=== PATIENT | male | born 1970 | race African-American/Black ===

== ENCOUNTER 2017-06-20 15:03 | Emergency (ER) | payer OTHER ==
[~2017-06-20] VITALS: Ht 182.9 cm; Wt 85.4 kg
[~2017-06-20 15:03] MED LIST: CATAPRES-TTS 30.3 MG PO; CLONIDINE HCL0.1 MG PO; ELAVIL50 MG PO; EXCEDRIN MIGRA1 EAC2 PO; HYDRALAZINE HCL50 M1 PO; HYDROCHLOROTHIA25 MG PO; NORVASC10 MG PO; SPIRONOLACTONE50 MG PO; ZESTRIL,PRINIVI40 MG PO
[2017-06-20 15:42] LABS: BASOPHIL (%) 0.4 % (0-1); EOSINOPHIL (%) 0.5 % (0-5); HEMATOCRIT 43.3 % (38.0-50.0); HEMOGLOBIN 14.5 G/DL (12.5-16.6); IMMATURE GRANULOCYTE (%) 0.2 % (0.0-0.7); LYMPHOCYTE (%) 32.9 % (15-42); LYMPHOCYTE COUNT 1.9 K/uL (1.0-2.8); MCH 27.5 PG (29.0-34.0); MCHC 33.5 G/DL (30.0-36.0); MONOCYTE (%) 8.5 % (3-12); MONOCYTE COUNT 0.5 K/uL (0-0.8); NEUTROPHIL (%) 57.5 % (45-76); NEUTROPHIL COUNT 3.3 K/uL (1.8-6.4); PLATELET COUNT 241 K/uL (156-360); RBC DIS.WIDTH-CV 13.2 % (11.8-14.6); RBC DIS.WIDTH-SD 39.4 % (39-53); RED BLOOD COUNT 5.28 M/uL (4.00-5.50); WHITE BLOOD COUNT 5.7 K/uL (4.1-10.2)
[2017-06-20 15:58] LABS: ALBUMIN 4.2 g/dL (3.2-4.8); CHLORIDE 110 mEq/L (99-109); POTASSIUM 3.5 mEq/L (3.7-5.4); SODIUM 144 mEq/L (136-147)
[2017-06-20 16:00] LABS: GLUCOSE 104 mg/dL (70-99)
[2017-06-20 16:02] LABS: TOTAL BILIRUBIN 0.4 mg/dL (0.0-1.0)
[2017-06-20 16:04] LABS: ALKALINE PHOSPHATASE 61 IU/L (3-129); CREATININE 1.1 mg/dL (0.6-1.3); GFR ESTIMATE (CALCULATED) > 59 mL/min/ (58.99-99999)
[2017-06-20 16:05] LABS: UREA NITROGEN (BUN) 8 mg/dL (9-23)
[2017-06-20 16:06] LABS: AST (GOT) 10 IU/L (2-34); TROP-I INTERPRETATION NEGATIVE; TROPONIN-I 0.02 ng/mL (0.0-0.30)
[2017-06-20 16:07] LABS: ALT (GPT) 10 IU/L (3-49)
[2017-06-20 16:47] LABS: AMPHETAMINE NEGATIVE (500 ng/mL); BARBITURATES NEGATIVE (200 ng/mL); BENZODIAZEPINES NEGATIVE (150 ng/mL); BUPRENORPHINE NEGATIVE (10 ng/mL); COCAINE NEGATIVE (150 ng/mL); METHADONE NEGATIVE (200 ng/mL); METHAMPHETAMINE NEGATIVE (500 ng/mL); OPIATES (MORPHINE) NEGATIVE (100 ng/mL); OXYCODONE NEGATIVE (100 ng/mL); PHENCYCLIDINE NEGATIVE (25 ng/mL); PROPOXYPHENE NEGATIVE (300 ng/mL); THC CANNABINOIDS NEGATIVE (50 ng/mL); TRICYCLIC ANTIDEPRESSANTS NEGATIVE (300 ng/mL)
[2017-06-20 22:08] LABS: TROP-I INTERPRETATION NEGATIVE; TROPONIN-I 0.02 ng/mL (0.0-0.30)
[2017-06-21 00:25] VITALS: BP 170/117
== END 2017-06-21 00:31 | disposition short-term general hospital (02) ==
LOC: EME 15:03
PROVIDERS: Emergency Medicine
DX: I16.1 Hypertensive emergency (principal); R07.9 Chest pain, unspecified; R51 Headache; J45.901 Unspecified asthma with (acute) exacerbation; I45.10 Unspecified right bundle-branch block; R00.0 Tachycardia, unspecified; I10 Essential (primary) hypertension; Z86.718 Personal history of other venous thrombosis and embolism; Z79.01 Long term (current) use of anticoagulants; Z87.891 Personal history of nicotine dependence
CPT/HCPCS: 70450; 71046; 71275; 74174; 80053; 83735; 84484; 85025; 93005; 94640 76; 99281; 99285; J1100; J1200; J2060; J2765; J3010; J3475

== ENCOUNTER 2017-06-29 12:13 | Emergency (ER) | payer OTHER ==
[~2017-06-29] VITALS: Ht 177.8 cm; Wt 83.2 kg
[2017-06-29 14:10] VITALS: BP 160/119
== END 2017-06-29 14:12 ==
LOC: EME 12:13
DX: J45.909 Unspecified asthma, uncomplicated (principal); J06.9 Acute upper respiratory infection, unspecified; I10 Essential (primary) hypertension; Z87.891 Personal history of nicotine dependence; Z88.5 Allergy status to narcotic agent
CPT/HCPCS: 71045; 93005; 94640; 99281; 99284; J1100; J7644

== ENCOUNTER 2017-09-04 14:16 | Emergency (ER) | payer OTHER ==
[~2017-09-04] VITALS: Ht 177.8 cm; Wt 94.5 kg
[2017-09-04 15:23] LABS: BASOPHIL (%) 0.7 % (0-1); BASOPHIL COUNT 0.1 K/uL (0-0.1); EOSINOPHIL (%) 4.8 % (0-5); EOSINOPHIL COUNT 0.3 K/uL (0-0.3); HEMATOCRIT 41.3 % (38.0-50.0); HEMOGLOBIN 13.7 G/DL (12.5-16.6); IMMATURE GRANULOCYTE (%) 0.3 % (0.0-0.7); LYMPHOCYTE COUNT 1.6 K/uL (1.0-2.8); MCH 27.8 PG (29.0-34.0); MCHC 33.2 G/DL (30.0-36.0); MCV 83.9 FL (86-99); MONOCYTE (%) 7.2 % (3-12); MONOCYTE COUNT 0.5 K/uL (0-0.8); NEUTROPHIL COUNT 4.4 K/uL (1.8-6.4); PLATELET COUNT 230 K/uL (156-360); RBC DIS.WIDTH-CV 13.3 % (11.8-14.6); RBC DIS.WIDTH-SD 40.5 % (39-53); RED BLOOD COUNT 4.92 M/uL (4.00-5.50); WHITE BLOOD COUNT 6.8 K/uL (4.1-10.2)
[2017-09-04 15:36] LABS: AMYLASE 83 IU/L (1-118); CHLORIDE 111 mEq/L (99-109); POTASSIUM 4.5 mEq/L (3.7-5.4); SODIUM 144 mEq/L (136-147)
[2017-09-04 15:37] LABS: GLUCOSE 95 mg/dL (70-99)
[2017-09-04 15:41] LABS: CREATININE 1.4 mg/dL (0.6-1.3); GFR ESTIMATE (CALCULATED) > 59 mL/min/ (58.99-99999); SERUM ETHYL ALCOHOL < 10 mg/dL
[2017-09-04 15:42] LABS: UREA NITROGEN (BUN) 10 mg/dL (9-23)
[2017-09-04 15:43] LABS: INTER. NORMALIZED RATIO 2.2
[2017-09-04 15:44] LABS: LIPASE 16 U/L (1.0-51.0)
[2017-09-04 15:46] LABS: PTT 41.3 SEC (25-37)
[2017-09-04 15:47] LABS: TROP-I INTERPRETATION NEGATIVE; TROPONIN-I 0.02 ng/mL (0.0-0.30)
[2017-09-04] MEDS ORDERED: FLOMAX0.4 MG PO (16:47)
[2017-09-04] MEDS ORDERED: SYMBICORT60 INHALAT IH (16:48)
[2017-09-04] MEDS ORDERED: NORMODYNE,TRAN300 MG PO (16:49)
[2017-09-04] MEDS ORDERED: LASIX20 MG PO (16:49)
[2017-09-04] MEDS ORDERED: LONITEN10 MG PO (16:50)
[2017-09-04] MEDS ORDERED: COUMADIN5 MG PO (16:51)
[2017-09-04] MEDS ORDERED: APRESOLINE10 MG PO (16:51)
[2017-09-04 17:00] LABS: APPEARANCE CLEAR ((CLEAR)); BILIRUBIN NEGATIVE; BLOOD NEGATIVE; COLOR YELLOW ((YELLOW)); GLUCOSE (STRIP) NEGATIVE; KETONES NEGATIVE; LEUKOCYTES SMALL; NITRITE NEGATIVE; PROTEIN (STRIP) NEGATIVE; SPECIFIC GRAVITY 1.019 (1.000-1.030); UROBILINOGEN 0.2 MG/DL (0.2-1.0)
[2017-09-04 17:05] LABS: BACTERIA NONE SEEN /HPF; EPITHELIAL CELLS RARE /HPF; MUCUS NONE SEEN /LPF; RED BLOOD CELLS 0-5 /HPF (0-5); UCUL ADDED? NO; WHITE BLOOD CELLS 0-5 /HPF (0-5)
[2017-09-04 17:23] LABS: AMPHETAMINE NEGATIVE (500 ng/mL); BARBITURATES NEGATIVE (200 ng/mL); BENZODIAZEPINES NEGATIVE (150 ng/mL); BUPRENORPHINE NEGATIVE (10 ng/mL); COCAINE NEGATIVE (150 ng/mL); METHADONE NEGATIVE (200 ng/mL); METHAMPHETAMINE NEGATIVE (500 ng/mL); OPIATES (MORPHINE) NEGATIVE (100 ng/mL); OXYCODONE NEGATIVE (100 ng/mL); PHENCYCLIDINE NEGATIVE (25 ng/mL); PROPOXYPHENE NEGATIVE (300 ng/mL); THC CANNABINOIDS NEGATIVE (50 ng/mL); TRICYCLIC ANTIDEPRESSANTS NEGATIVE (300 ng/mL)
[2017-09-04 17:57] VITALS: BP 158/103
== END 2017-09-04 18:02 | disposition short-term general hospital (02) ==
LOC: EME 14:16
PROVIDERS: Emergency Medicine
DX: R29.818 Other symptoms and signs involving the nervous system (principal); I16.0 Hypertensive urgency; G43.909 Migraine, unspecified, not intractable, without status migrainosus; R00.0 Tachycardia, unspecified; Z87.891 Personal history of nicotine dependence; Z88.5 Allergy status to narcotic agent
CPT/HCPCS: 70450; 80048; 81003; 82150; 82948; 83690; 84484; 85025; 85610; 85730; 86850; 86900; 86901; 93005; 94640; 99281; 99285; G0480

== ENCOUNTER 2017-10-02 19:54 | Emergency (ER) | payer OTHER ==
[~2017-10-02] VITALS: Ht 177.8 cm; Wt 94.4 kg
[~2017-10-02 19:54] MED LIST changes: +APRESOLINE10 MG PO; +COUMADIN5 MG PO; +FLOMAX0.4 MG PO; +LASIX20 MG PO; +LONITEN10 MG PO; +NORMODYNE,TRAN300 MG PO; +SYMBICORT60 INHALAT IH
[2017-10-02 20:44] LABS: HEMATOCRIT 37.4 % (38.0-50.0); HEMOGLOBIN 12.4 G/DL (12.5-16.6); MCH 27.4 PG (29.0-34.0); MCHC 33.2 G/DL (30.0-36.0); MCV 82.7 FL (86-99); PLATELET COUNT 224 K/uL (156-360); RBC DIS.WIDTH-CV 13.2 % (11.8-14.6); RED BLOOD COUNT 4.52 M/uL (4.00-5.50); WHITE BLOOD COUNT 8.2 K/uL (4.1-10.2)
[2017-10-02 20:52] LABS: ALBUMIN 4.1 g/dL (3.2-4.8)
[2017-10-02 20:53] LABS: CHLORIDE 109 mEq/L (99-109); POTASSIUM 3.9 mEq/L (3.7-5.4); SODIUM 140 mEq/L (136-147)
[2017-10-02 20:55] LABS: GLUCOSE 98 mg/dL (70-99); TOTAL PROTEIN 7.2 g/dL (6.4-8.3)
[2017-10-02 20:57] LABS: TOTAL BILIRUBIN 0.6 mg/dL (0.0-1.0)
[2017-10-02 20:58] LABS: ALKALINE PHOSPHATASE 58 IU/L (3-129)
[2017-10-02 20:59] LABS: CREATININE 1.2 mg/dL (0.6-1.3); GFR ESTIMATE (CALCULATED) > 59 mL/min/ (58.99-99999)
[2017-10-02 21:00] LABS: AST (GOT) 10 IU/L (2-34); UREA NITROGEN (BUN) 8 mg/dL (9-23)
[2017-10-02 21:02] LABS: ALT (GPT) 14 IU/L (3-49)
[2017-10-02 21:07] LABS: TROP-I INTERPRETATION NEGATIVE; TROPONIN-I 0.02 ng/mL (0.0-0.30)
[2017-10-02 21:19] LABS: ABS NEUTROPHIL COUNT 4.4; BASOPHILS 0.9 %; EOSINOPHIL ABS CT 0.7; EOSINOPHILS 8.7 % (0-5.0); LYMPHOCYTES 24.3 % (15.0-45.0); MONOCYTES 5.2 % (0-9.0); PLAT.SUFFICIENCY ADEQUATE; SEG.NEUTROPHILS 53.9 % (46.0-76.0)
[2017-10-03 00:29] VITALS: BP 173/108
== END 2017-10-03 01:08 | disposition short-term general hospital (02) ==
LOC: EME → EDBD 19:54 → EME 10-03 01:08
PROVIDERS: Emergency Medicine
DX: I16.0 Hypertensive urgency (principal); R51 Headache; R07.89 Other chest pain; H53.8 Other visual disturbances; J45.909 Unspecified asthma, uncomplicated; Z79.01 Long term (current) use of anticoagulants; Z87.891 Personal history of nicotine dependence
CPT/HCPCS: 70450; 71045; 80053; 84484; 85025; 93005; 99281; 99285; J0360; J2270